=== PATIENT | female | born 1950 | race Two or more races ===

== ENCOUNTER 2024-06-09 16:20 | Emergency (ER) | payer OTHER ==
[~2024-06-09] VITALS: Ht 165.1 cm; Wt 72.6 kg
[2024-06-09] MEDS ORDERED: ELIQUIS5 MG PO (17:04)
[2024-06-09] MEDS ORDERED: VIT D3-VIT K21 EACH PO (17:04)
[2024-06-09] MEDS ORDERED: LEVO-T50 MCG PO (17:04)
[2024-06-09] MEDS ORDERED: BYSTOLIC5 MG PO (17:05)
[2024-06-09] MEDS ORDERED: PRILOSEC OTC20 MG PO (17:05)
[2024-06-09] MEDS ORDERED: HYDRALAZINE HCL10 MG PO (17:05)
[2024-06-09] MEDS ORDERED: EFFEXOR XR150 MG PO (17:06)
[2024-06-09] MEDS ORDERED: FAMOtidine 10 MG/ML (4ML VIAL) IV ONE (17:30)
[2024-06-09] MEDS ORDERED: 0.9 % SODIUM CHLORIDE 1,000 ML IV ONE (17:30)
[2024-06-09] MEDS ORDERED: ONDANSETRON HCL 2 MG/ML VIAL IV ONE (17:30)
[2024-06-09] MEDS ORDERED: BENZONATATE 100 MG CAPSULE PO ONE (17:30)
[2024-06-09] MEDS ORDERED: LEVALBUTEROL HCL 1.25 MG/3 ML SOLUTION IH ONE (17:30)
[2024-06-09 18:12] LABS: HEMOGLOBIN 15.3 g/dL (12.0-15.00); MEAN CELL VOLUME 94.4 fL (80.00-100.00); MEAN CORPUSCULAR HEMOGLOBIN 33.6 pg (27.00-32.0); MEAN CORPUSCULAR HGB CONC 35.5 g/dl (32.0-36.0); PLATELET COUNT 367 K/uL (150-450); RED BLOOD COUNT 4.55 M/uL (4.00-6.00); RED CELL DISTRIBUTION WIDTH 13.9 % (11.5-14.5)
[2024-06-09 18:28] LABS: PH,URINE 5.5 (5.0-8.0); URINE APPEARANCE Cloudy; URINE BACTERIA 6328.7 uL (0.0-1933); URINE BILIRRUBIN Negative (NEGATIVE); URINE BLOOD Trace; URINE COLOR Yellow; URINE EPITHELIAL CELLS 24.7 uL (0.0-38.8); URINE GLUCOSE Negative (NEGATIVE); URINE KETONE Negative (NEGATIVE); URINE LEUKOCYTE Moderate; URINE NITRATE Positive; URINE PROTEIN Trace (NEGATIVE); URINE RBC 11.6 uL (0.0-20.8); URINE UROBILINOGEN 0.2 E.U./dl
[2024-06-09 18:35] LABS: ALBUMIN 3.4 gm/dL (3.4-5.0); BILIRUBIN TOTAL 0.25 mg/dL (0.3-1.2); CALCIUM 9.2 mg/dL (8.5-10.1); CREATININE SERUM 0.93 mg/dL (0.55-1.02); GFR 59.09; POTASSIUM 4.01 mEq/L (3.5-5.1); TOTAL PROTEIN 7.4 gm/dL (6.4-8.2)
[2024-06-09 19:04] LABS: URINE CAST 1.22 uL (0.0-1.40)
[2024-06-09] MEDS ORDERED: OSEL75CA PO (19:12)
[2024-06-09] MEDS ORDERED: BACTRIM DS TAB1 EACH PO (19:12)
[2024-06-09] MEDS ORDERED: PEPCID AC20 MG PO (19:12)
[2024-06-09] MEDS ORDERED: ZOFRAN8 MG PO (19:16)
== END 2024-06-09 19:22 | disposition home or self-care (01) ==
LOC: ER 16:22
PROVIDERS: General Practice
DX: J10.1 Influenza due to other identified influenza virus with other respiratory manifestations (principal); E11.9 Type 2 diabetes mellitus without complications; Z85.07 Personal history of malignant neoplasm of pancreas; I10 Essential (primary) hypertension; Z88.0 Allergy status to penicillin; Z20.822 Contact with and (suspected) exposure to COVID-19

== ENCOUNTER 2024-06-30 17:16 | Emergency (ER) | payer OTHER ==
[~2024-06-30] VITALS: Ht 157.5 cm; Wt 70.3 kg
[~2024-06-30 17:16] MED LIST: BACTRIM DS TAB1 EACH PO; BYSTOLIC5 MG PO; EFFEXOR XR150 MG PO; ELIQUIS5 MG PO; HYDRALAZINE HCL10 MG PO; LEVO-T50 MCG PO; OSEL75CA PO; PEPCID AC20 MG PO; PRILOSEC OTC20 MG PO; VIT D3-VIT K21 EACH PO; ZOFRAN8 MG PO
[2024-06-30] MEDS ORDERED: LEVOXYL100 MCG PO (17:43)
[2024-06-30] MEDS ORDERED: FAMOTIDINE/PF 20 MG in 0.9 % SODIUM CHLORIDE 8 ML IV PUSH STA (18:35)
[2024-06-30] MEDS ORDERED: ONDANSETRON HCL 2 MG/ML VIAL IV ONE (18:45)
[2024-06-30] MEDS ORDERED: 0.9 % SODIUM CHLORIDE 1,000 ML IV SCH (18:45)
[2024-06-30] MEDS ORDERED: KETOROLAC TROMETHAMINE 30 MG VIAL IV ONE (18:45)
[2024-06-30 19:10] LABS: HEMATOCRIT 40.9 % (36.0-45.00); HEMOGLOBIN 13.9 g/dL (12.0-15.00); MEAN CELL VOLUME 96.1 fL (80.00-100.00); MEAN CORPUSCULAR HEMOGLOBIN 32.6 pg (27.00-32.0); MEAN CORPUSCULAR HGB CONC 33.9 g/dl (32.0-36.0); PLATELET COUNT 494 K/uL (150-450); RED BLOOD COUNT 4.26 M/uL (4.00-6.00); RED CELL DISTRIBUTION WIDTH 14.5 % (11.5-14.5)
[2024-06-30 19:26] LABS: ALBUMIN 3.4 gm/dL (3.4-5.0); BILIRUBIN TOTAL 1.58 mg/dL (0.3-1.2); CALCIUM 8.9 mg/dL (8.5-10.1); CREATININE SERUM 0.81 mg/dL (0.55-1.02); GFR 69.31; GLOBULINA 4.4 G/DL (2.4-3.5); POTASSIUM 3.51 mEq/L (3.5-5.1); TOTAL PROTEIN 7.8 gm/dL (6.4-8.2)
[2024-06-30 19:40] LABS: BILIRUBIN,CONJUGATED 0.7 mg/dL (0.0-0.2); BILIRUBIN,UNCONJUGATED 0.88 mg/dL (0.0-0.6)
[2024-06-30] MEDS ORDERED: CARAFATE1 GM PO (21:21)
[2024-06-30] MEDS ORDERED: LEVSIN/SL0.125 MG SL (21:21)
== END 2024-06-30 21:31 | disposition home or self-care (01) ==
LOC: ER 17:18
PROVIDERS: General Practice
DX: K29.70 Gastritis, unspecified, without bleeding (principal); R11.10 Vomiting, unspecified; I10 Essential (primary) hypertension; E03.8 Other specified hypothyroidism; Z88.0 Allergy status to penicillin

== ENCOUNTER 2024-11-04 15:54 | Emergency (ER) | payer OTHER ==
[~2024-11-04] VITALS: Ht 160 cm; Wt 72.6 kg
[~2024-11-04 15:54] MED LIST changes: +CARAFATE1 GM PO; +LEVOXYL100 MCG PO; +LEVSIN/SL0.125 MG SL
[2024-11-04 16:02] VITALS: BP 125/81; O2SAT 94
[2024-11-04] MEDS ORDERED: TETANUS & DIPHTHERIA TOX,ADULT 0.5 ML VIAL IM ONE (16:30)
[2024-11-04] MEDS ORDERED: DIPHTH,PERTUSS(ACELL),TET VAC 0.5 ML SYRINGE IM ONE (16:35)
== END 2024-11-04 17:46 | disposition home or self-care (01) ==
LOC: ER 15:55
DX: S01.81XA Laceration without foreign body of other part of head, initial encounter (principal); W18.39XA Other fall on same level, initial encounter; Y93.89 Activity, other specified; Y92.018 Other place in single-family (private) house as the place of occurrence of the external cause; Y99.9 Unspecified external cause status; I10 Essential (primary) hypertension; E03.9 Hypothyroidism, unspecified; Z88.0 Allergy status to penicillin; Z88.8 Allergy status to other drugs, medicaments and biological substances; Z91.018 Allergy to other foods